=== PATIENT | male | born 1960 | race Caucasian/White ===

== ENCOUNTER 2019-12-10 08:27 | Emergency (ER) | payer OTHER ==
--- NOTE | 2019-12-10 08:34 | ED ---
Syncope/Near Syncope - HPI Summary HPI Summary: Patient is a 59 y/o M presenting to the ED via EMS for a chief complaint of syncopal episode that occurred on 12/10/19 while at work. Patient reports that he was walking when he hit his left LE on something and had a syncopal episode, falling back and hitting the back of his head. The syncopal episode was witnessed by a coworker. On EMS arrival, patient had decreased responsiveness for 10-15 seconds before resolving. Currently, patient complains of a headache that he rates as a 5/10 in severity and a laceration to the back of the head. Patient denies changes in appetite, chest pain, shortness of breath, vision changes, numbness, or paresthesia. On the night of 12/09/19, patient admits not sleeping well. In the past, patient has had similar symptoms when experiencing low blood sugar. PMHx is significant for DM, HLD, and HTN. Last tetanus vaccination was 7-8 years ago. Patient admits alcohol use, but denies tobacco or drug use. Medications reviewed. Allergies noted. - History Of Current Complaint Hx Obtained From: Patient Onset/Duration: Sudden Onset, Resolved Timing: Constant Context: Witnessed Activity At Onset: At Rest Associated Head Trauma: Yes Aggravating Factor(s): Nothing Alleviating Factor(s): Spontaneous Resolution Associated Signs And Symptoms: Headache - Allergies/Home Medications Allergies/Adverse Reactions: Allergies Allergy/AdvReac Type Severity Reaction Status Date / Time No Known Allergies Allergy Verified 12/14/15 18:24 PMH/Surg Hx/FS Hx/Imm Hx Previously Healthy: Yes Endocrine/Hematology History: Reports: Hx Diabetes Cardiovascular History: Reports: Hx Hypercholesterolemia, Hx Hypertension Sensory History: Denies: Hx Legally Blind, Hx Deafness Opthamlomology History: Denies: Hx Legally Blind EENT History: Denies: Hx Deafness - Surgical History Surgical History: None Surgery Procedure, Year, and Place: None Infectious Disease History: No - Family History Known Family History: Negative: Blood Disorder - Social History Occupation: Employed Full-time Lives: With Family Alcohol Use: Occasionally Hx Substance Use: No Substance Use Type: Reports: None Hx Tobacco Use: No Smoking Status (MU): Never Smoked Tobacco Review of Systems Negative: Other - Negative changes in appetite Negative: Other - Negative vision changes Negative: Chest Pain Negative: Shortness Of Breath Positive: Other - Positive laceration to the back of the head Neurological/Mental Status: Other - Positive decreased responsiveness, resolved Positive: Headache, Syncope. Negative: Paresthesia, Numbness All Other Systems Reviewed And Are Negative: Yes Physical Exam - Summary Physical Exam Summary: Constitutional: Well-developed, Well-nourished, Alert. (-) Distressed Skin: Warm, Dry HENT: Normocephalic; Atraumatic. 4 cm laceration to the occiput with no active bleeding. Eyes: Conjunctiva normal Neck: Musculoskeletal ROM normal neck. (-) JVD, (-) Stridor, (-) Tracheal deviation Cardio: Rhythm regular, rate normal, Heart sounds normal; Intact distal pulses; Radial pulses are 2+ and symmetric. (-) Murmur Pulmonary/Chest wall: Effort normal. (-) Respiratory distress, (-) Wheezes, (-) Rales Abd: Soft, (-) tenderness, (-) Distension, (-) Guarding, (-) Rebound Musculoskeletal: (-) Edema. Lymph: (-) Cervical adenopathy Neuro: Alert, Oriented x3. NIH Stroke Scale: 0. Psych: Mood and affect Normal Triage Information Reviewed: Yes Vital Signs Reviewed: Yes - [place] Coma Scale Best Eye Response: 4 - Spontaneous Best Motor Response: 6 - Obeys Commands Best Verbal Response: 5 - Oriented Coma Scale Total: 15 Procedures - Sedation Patient Received Moderate/Deep Sedation with Procedure: No - Laceration/Wound Repair 1 Location: head - Occiput Description: Linear Anesthesia: Local Length, Depth and Shape: 4 cm laceration to the occiput Laceration/Wound Explored: clean Closure: Bonita #__ - 6 Diagnostics - Laboratory Result Diagrams: 12/10/19 08:41 12/10/19 08:41 Lab Statement: Any lab studies that have been ordered have been reviewed, and results considered in the medical decision making process. - CT Brain CT CT Interpretation Completed By: Radiologist Summary of CT Findings: Brain CT IMPRESSION: 1. Posterior scalp laceration. The subjacent calvarium is intact. 2. No acute intracranial abnormality. Reviewed by Dr. Gutiérrez. - EKG 08:47 Cardiac Rate: NL, Bradycardia - 57 BPM EKG Rhythm: Sinus Bradycardia ST Segment: Normal Ectopy: None Summary of EKG Findings: EKG at 08:47 shows sinus bradycardia with 57 BPM, T wave inversions in lead II and aVF, no prior EKG is available for comparison, no STEMI. Reviewed and interpreted by Dr. Gutiérrez. Course/Dx Course Of Treatment: Patient is here after having a syncopal episode at work. Patient did hit his head so a CT scan was ordered which was negative. Patient' s never had a syncopal episode like this before and had no preceding symptoms. Patient had bloodwork performed which showed no evidence of anemia, electrolyte abnormality, elevated troponin, elevated BNP. Patient's EKG showed no evidence of ischemia or arrhythmia. Patient was discharged with PCP follow-up as his overall low risk for syncope. Patient did have his laceration repaired with bonita. - Diagnoses Provider Diagnoses: Occipital scalp laceration, Syncope Discharge ED - Sign-Out/Discharge Documenting (check all that apply): Patient Departure - Discharge - Discharge Plan Condition: Stable Disposition: HOME Patient Education Materials: Syncope (ED) Referrals: Junior Sanchez MD [Primary Care Provider] - Additional Instructions: PLEASE RETURN TO EMERGENCY DEPARTMENT FOR SLURRED SPEECH, ONE-SIDED WEAKNESS, ONE-SIDED NUMBNESS, PUS FROM YOUR WOUND, REDNESS FROM YOUR WOUND, FEVER, OR ANY NEW OR WORSENING SYMPTOMS. Please follow up with your primary care physician. Please make all follow-ups in 1-3 days unless I advise you otherwise. Take Motrin 3 tablets every 6 hours for pain. You are likely to feel worse tomorrow. Return here, go to urgent care, or go to your primary in 10 days to have your bonita removed. - Billing Disposition and Condition Condition: STABLE Disposition: Home - Attestation Statements Document Initiated by Yuki: Yes Documenting Scribe: Saritha Lo Provider For Whom Yuki is Documenting (Include Credential): Irvin Gutiérrez MD Scribe Attestation: Saritha Vargas, scribed for Irvin Gutiérrez MD on 12/10/19 at 1807. Scribe Documentation Reviewed: Yes Provider Attestation: The documentation as recorded by the Saritha mendoza accurately reflects the service I personally performed and the decisions made by me, Irvin Gutiérrez MD Status of Scribe Document: Viewed NIH Scale - NIH Scale Level of Consciousness: Alert/Keenly Responsive Ask Patient the Month and His/Her Age: Both Correct Ask Pt to Open/Close Eyes and On Call Pharmacy Technician/Release Non-Paretic Hand: Both Correctly Best Gaze (Only Horizontal Eye Movement): Normal Visual Field Testing: No Visual Loss Facial Paresis-Pt to Smile & Close Eyes or Grimace Symmetry: Normal/Symmetrical Motor Function - Right Arm: No Drift-Holds 10 Seconds Motor Function - Left Arm: No Drift-Holds 10 Seconds Motor Function - Right Leg: No Drift-Holds 10 Seconds Motor Function - Left Leg: No Drift-Holds 10 Seconds Limb Ataxia-Must be out of Proportion to Weakness Present: Absent Sensory (Use Pinprick to Test Arms/Legs/Trunk/Face): Normal Best Language (Describe Picture, Name Items): No Aphasia Dysarthria (Read Several Words): Normal Extinction and Inattention: No Abnormality Total Score: 0
[2019-12-10] MEDS ORDERED: Lidocaine/Epineph/Tetraca SOL 4 ML BTL (LET solution) TOPICAL ONE (08:35)
--- OUTSIDE RECORDS SUMMARY | 2019-12-10 08:48 | XMS REPORT | Continuity of Care Document ---
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 Onset: 09/24/2003 Prolonged depressive adjustment reaction Juve Saucedo M.D. Onset: Type II diabetes mellitus uncontrolled Juve Saucedo M.D. Onset: 2002 Benign essential hypertension Juve Saucedo M.D. Onset: 02/24/2004 Induratio penis plastica Juve Saucedo M.D. Onset: 10/13/2008 Psychosexual dysfunction associated with Juve Saucedo M.D. Onset: inhibited libido Essential hypertension Neymar Moy Onset: 04/13/2011 Otalgia Ritesh Huerta D.O. Onset: 08/11/2014 Type 2 diabetes mellitus Ritesh Huerta D.O. Onset: 02/09/2015 Essential tremor Junior Sanchez M.D. Onset: 06/06/2016 Diaphragmatic hernia Neymar Moy Onset: 09/24/2018 Social History Type Date Description Comments Sex Unknown Tobacco Use Start: Unknown End: Unknown Does Not Smoke Cigarettes Smoking Status Reviewed: 11/25/19 Does Not Smoke Cigarettes ETOH Use Denies alcohol use Tobacco Use Start: Unknown Patient has never smoked Allergies, Adverse Reactions, Alerts Description No Known Drug Allergies Medications Active Medications SIG Qnty Indications Ordering Date Provider Trulicjareth 1.5 mg per week 6ml E11.65 Junior Sanchez, 10/11/2019 for management of M.D. 1.5mg/0.5ML diabetes Solution Pen-Inject Pentips Pen Needle Inject Two Times A 100units Ritesh Huerta, 02/25/2019 8mm Day D.O. Glipizide ER Take One Tablet By 90tabs E11.9 Junior Sanchez, 09/24/2018 10mg Mouth Every Day In M.D. Tablets ER 24HR The Morning For Blood Sugar Control E11.65 Atenolol Take One Tablet By 90tabs I10 Junior Sanchez, 09/24/2018 25mg Tablets Mouth Every Day M.D. Livongo Glucometer Unknown 12/17/2017 Calcium (OTC) Unknown 06/14/2017 Levemir Flextouch Inject 25 Units 90units E11.65 Ritesh Huerta, 2016 Twice A Day as The D.O. 100Unit/ML Solution Same Time Every Pen-Inject Day, For Blood Sugar Control, Adjust as Directed. E11.9 Atorvastatin Calcium Take One Tablet By 90tabs E78.5 Junior Sanchez, 20mg Mouth Every Day For M.D. Tablets High Cholesterol E11.9 E11.65 Lisinopril-Hydrochlorothiazide Take Two 180tabs I10 Laura, 11/07/2014 20-12.5mg Tablets Tablets By Beth Pacheco Mouth Every Day For Blood Pressure Aspir-81 81mg take one tab otc Unknown 11/01/[address] dav to reduce risk heart attck/stroke . Vitamin C OTC Unknown 11/01/2013 Iron OTC Unknown 11/01/2013 pc Super Thin 30G Lancets Use as 200units E11Tyson Sanchez, 04/02/2012 Directed Beth Pacheco E11.65 Multivitamins 1 po qd OTC Unknown 04/12/2011 Tablets Lancet Device For 1units Junior Sanchez, 01/12/2011 Testing Glucose M.D. Metformin HCL Take One Tablet By 90tabs E11.9 Ritesh Huerta, 12/14/2005 850mg Tablets Mouth Every Evening D.O. For Diabetes History Medications Trulicity 0.75 mg/0.5ml once 6ml E11.65 KarthikRitesh ross, 07/12/2019 - 0.75mg/0.5ML weekly x 4 weeks, D.O. 10/11/2019 Solution Pen-Inject if tolerated. Trulicity 1.5 mg per week for 2ml E11.65 Nickyhailee Junior, 07/12/2019 - 1.5mg/0.5ML management of M.D. 10/10/2019 Solution Pen-Inject diabetes, start in one month after lower dose Trulicity complete Medications Administered in Office Medication SIG Qnty Indications Ordering Provider Date H1N1 Swine Flu Vaccine Nurse's Schedule 10/09/2009 Injection Immunizations CPT Code Status Date Vaccine Lot # U-Flu Given 08/11/2019 Influenza,Unspecified U-Flu Given 09/24/2018 Influenza,Unspecified U-Flu Given 08/07/2017 Influenza,Unspecified U-Flu Given 08/07/2015 Influenza,Unspecified [id number] Given 09/29/2013 Zostavax 17969 Given 07/20/2012 Flu, Split Virus 3Yrs [id number] 50444 Given 07/18/2011 Flu, Split Virus 3Yrs [id number] 91601 Given 10/15/2010 Adacel or Boostrix, TDaP 31551 Given 10/15/2010 Flu, Split Virus 3Yrs 25833 Given 06/29/2010 Pneumococcal Immunization [id number] 20457 Given 10/07/2009 Flu, Split Virus 3Yrs 37155 Given 08/03/2007 Td Immunization [id number] 50939 Given 10/07/2005 Flu, Split Virus 3Yrs 50698 Given 10/07/2005 Flu, Split Virus 3Yrs [id number] 92922 Given 08/04/2004 Flu, Split Virus 3Yrs 26565 Given 07/31/2003 Flu, Split Virus 3Yrs 54895 Given 07/30/2002 Flu, Split Virus 3Yrs 05828 Given 07/30/2002 Hib,HbOC,4 Dose Schedule 46024 Given 08/30/2001 Flu, Split Virus 3Yrs 94023 Given 08/30/2000 Flu, Split Virus 3Yrs 23326 Given 08/30/2000 Hib,HbOC,4 Dose Schedule 70767 Given 07/30/1999 Flu, Split Virus 3Yrs 12779 Given 10/30/1996 Td Immunization 07561 Given 12/01/1994 Td Immunization 65494 Given 10/30/1971 Td Immunization [id number] Refused 06/29/2010 Adacel or Boostrix, TDaP Vital Signs Date Vital Result Comment 11/25/2019 12:58pm BP Systolic 112 mmHg BP Diastolic 68 mmHg Height 72.25 inches 6'0.25" Weight 216.00 lb BMI (Body Mass Index) 29.1 kg/m2 10/11/2019 3:57pm BP Systolic 132 mmHg BP Diastolic 68 mmHg Weight 216.00 lb Results Test Acquired Date Facility Test Result H/L Range Note Lipid Profile 10/25/2019 [facility] Triglycerides 132 mg/dL 1 (Trig/Chol/HDL) [phone] Cholesterol 157 mg/dL 2 HDL Cholesterol 46.1 mg/dL 3 LDL Cholesterol 85 mg/dL 4 Comp Metabolic Panel 10/25/2019 [facility] Sodium 136 mmol/L Normal 135-145 [phone] Potassium 4.2 mmol/L Normal 3.5-5.0 Chloride 101 mmol/L Normal 101-111 Co2 Carbon Dioxide 27 mmol/L Normal 22-32 Anion Gap 8 mmol/L Normal 2-11 Glucose 179 mg/dL High 70-100 Blood Urea Nitrogen 17 mg/dL Normal 6-24 Creatinine 0.85 mg/dL Normal 0.67-1.17 BUN/Creatinine Ratio 20.0 Normal 8-20 Calcium 9.4 mg/dL Normal 8.6-10.3 Total Protein 6.8 g/dL Normal 6.4-8.9 Albumin 4.4 g/dL Normal 3.2-5.2 Globulin 2.4 g/dL Normal 2-4 Albumin/Globulin Ratio 1.8 Normal 1-3 Total Bilirubin 0.80 mg/dL Normal 0.2-1.0 Alkaline Phosphatase 50 U/L Normal 34-104 Alt 42 U/L Normal 7-52 Ast 26 U/L Normal 13-39 Egfr Non- 92.9 >60 Egfr 112.4 >60 5 Urine Microalbumin 10/25/2019 [facility] Ur Microalbumin 18.7 mg/L Random [phone] (mg/L) Urine Creatinine 124.67 mg/dL Urine Microalbumin/Creatinine 14.9 Normal <31 Laboratory test finding 10/11/2019 In House Hemoglobin A1c 6.8% Laboratory test finding 07/12/2019 In House Hemoglobin A1c 7.5 1 Desirable: <150 Borderline High: 150-199 High: 200-499 Very High: >500 2 Desirable: <200 Borderline High: 200-239 High: >239 3 Low: <40 Desirable: 40-60 High: >60 4 Desirable: <100 Near Optimal: 100-129 Borderline High: 130-159 High: 160-189 Very High: >189 5 Because ethnic data is not always readily available, this report includes an eGFR for both -Americans and non- Americans. The National Kidney Disease Education Program (NKDEP) does not endorse the use of the MDRD equation for patients that are not between the ages of 18 and 70, are , have extremes of body size, muscle mass, or nutritional status, or are non- or non-. According to the National Kidney Foundation, irrespective of diagnosis, the stage of the disease is based on the level of kidney function: Stage Description GFR(mL/min/1.73 m(2)) 1 Kidney damage with normal or decreased GFR 90 2 Kidney damage with mild decrease in GFR 60-89 3 Moderate decrease in GFR 30-59 4 Severe decrease in GFR 15-29 5 Kidney failure <15 (or dialysis) Procedures Date Code Description Status 09/18/2019 [id number] Diabetic Retinal Eye Exam Completed 07/12/2019 508499851 Diabetic Foot Exam Completed 02/28/2012 [id number] Colonoscopy Completed Medical Devices Description No Information Available Encounters Type Date Location Provider Dx Diagnosis Office Visit 11/25/2019 Main Office Ai Mcbride, Z01.818 Encounter for other 12:55p preprocedural examination Z68.29 Body mass index (BMI) 29.0-29.9, adult Office Visit 10/11/2019 3:40p Main Office Fany Monroe, E11.65 Type 2 diabetes P.A. 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 mellitus with hyperglycemia E78.5 Hyperlipidemia, unspecified I10 Essential (primary) hypertension F45.8 Other somatoform disorders N48.6 Induration penis plastica Z00.00 Encntr for general adult medical exam w/o abnormal findings E66.3 Overweight Z68.30 Body mass index (BMI) 30.0-30.9, adult Assessments Date Code Description Provider 11/25/2019 Z01.818 Encounter for other preprocedural examination Ai Mcbride MD 11/25/2019 Z68.29 Body mass index (BMI) 29.0-29.9, adult Ai Mcbride MD 10/11/2019 E11.65 Type 2 diabetes mellitus with hyperglycemia Fany [place] , P.A. 10/11/2019 E78.5 Hyperlipidemia, unspecified Fany [place], P.A. 10/11/2019 I10 Essential (primary) hypertension Fany [place], P.A. 10/11/2019 Z79.4 meterman (current) use of insulin Fany [place], P.A. 10/11/2019 Z79.899 Other senior care (current) drug therapy Fany [place], P.A. 07/12/2019 E11.65 Type 2 diabetes mellitus with hyperglycemia Fany [place] , P.A. 07/12/2019 E78.5 Hyperlipidemia, unspecified Fany [place], P.A. 07/12/2019 I10 Essential (primary) hypertension Fany [place], P.A. 07/12/2019 F45.8 Other somatoform disorders Fany [place], P.A. 07/12/2019 N48.6 Induration penis plastica Fany [place], P.A. 07/12/2019 Z00.00 Encounter for general adult medical Fany [place], P.A. examination without abnormal findings 07/12/2019 E66.3 Overweight Fany [place], P.A. 07/12/2019 Z68.30 Body mass index (BMI) 30.0-30.9, adult Fany [place]argasle, P.A. Plan of Treatment Future Appointment(s):01/16/2020 3:45 pm - Ai Mcbride MD at Main [id number] 3:40 pm - Nemyar Moy at Main [id number]/11/2019 - Neymar MoyE11.65 Type 2 diabetes mellitus with hyperglycemiaNew Medication: Trulicity 1.5 mg/0.5ML - 1.5 mg per week for management of diabetesComments: reminded after appt , via portal, of labs dueFollow up:A1C 6.8% today! Great! E78.5 Hyperlipidemia, [id number] Essential (primary) hypertensionComments: pt advised to report cp, change in angina , sob etContinue same meds with no change. Comply with diet and exercise. 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
[2019-12-10 08:51] LABS: ABS Basophils 0.1 10^3/ul (0-0.2); ABS Eosinophils 0.5 10^3/ul (0-0.6); ABS Lymphocytes 1.4 10^3/ul (1.0-4.8); ABS Monocytes 0.6 10^3/ul (0-0.8); ABS Neutrophils 4.5 10^3/ul (1.5-7.7); Hematocrit 41 % (42-52); Hemoglobin 14.3 g/dL (14.0-18.0); Mean Corpuscular HGB Conc 34 g/dL (31-36); Mean Corpuscular Hemoglobin 32 pg (27-31); Mean Corpuscular Volume 93 fL (80-94); Mean Platelet Volume 6.8 fL (7.4-10.4); Platelet Count 225 10^3/uL (150-450); Red Blood Count 4.46 10^6 /uL (4.18-5.48); Red Cell Distribution Width 13 % (10-15)
[2019-12-10 09:08] LABS: BUN/Creatinine Ratio 22.4 (8-20); Calcium 9.4 mg/dL (8.6-10.3); EGFR African American 95.4 (>60); EGFR Non-African American 78.8 (>60)
[2019-12-10 09:11] LABS: Troponin I 0.01 ng/mL (<0.03)
[2019-12-10] MEDS ORDERED: HYDROcodone/ACETAMIN 5-325 MG* 1 TAB PO ONE (09:49)
[2019-12-10] MEDS ORDERED: Ibuprofen TAB* 600 MG PO ONE (09:49)
[2019-12-10 11:15] VITALS: BP 139/85
== END 2019-12-10 11:14 | disposition home or self-care (01) ==
LOC: ED 08:27
DX: S01.01XA Laceration without foreign body of scalp, initial encounter (principal); W18.30XA Fall on same level, unspecified, initial encounter; Y93.01 Activity, walking, marching and hiking; Y92.9 Unspecified place or not applicable; Y99.0 Civilian activity done for income or pay; R55 Syncope and collapse; R00.1 Bradycardia, unspecified; E11.9 Type 2 diabetes mellitus without complications; I10 Essential (primary) hypertension
CPT/HCPCS: 36415; 70450; 80048; 83880; 84484; 85025; 93005; 99283; A9270-GY